=== PATIENT | male | born 1955 | race African-American/Black ===

== ENCOUNTER 2024-09-11 00:07 | Emergency (ER) | payer OTHER ==
[2024-09-11 01:14] LABS: #Basophils 0.01 10x3/uL (0.0-0.2); #Eosinophils 0.11 10x3/uL (0.0-0.5); #Neutrophils 4.48 10x3/uL (1.5-8.4); %Basophils 0.2 % (0.0-2.0); %Eosinophils 1.8 % (0.0-6.0); %Lymphocytes 15.2 % (18.0-47.0); %Monocytes 8.3 % (0.0-10.0); %Neutrophils 74.2 % (40.0-75.0); Hematocrit 33.8 % (38.8-50.0); Mean Corpuscular HGB CONC 32.5 g/dL (32.0-36.0); Mean Platelet Volume 9.1 fL (7.4-10.4); Platelet Count 203 10x3/uL (150-450); Red Blood Cell (RBC) Count 4.07 10x6/uL (4.32-5.72)
[2024-09-11 01:30] LABS: Troponin I 0.014 ng/mL (< 0.028)
[2024-09-11 01:32] LABS: ALT (SGPT) 11 U/L (8-55); AST (SGOT) 19 U/L (5-34); Albumin 3.4 g/dL (3.4-4.8); Alkaline Phosphatase 90 U/L (40-110); Anion Gap 14 mmol/L (10-20); BUN (Urea Nitrogen) 16 mg/dL (8.4-25.7); Bilirubin, Total 0.6 mg/dL (0.2-1.2); Calc. Creatinine Clearance 0 mL/min (70-130); Calcium 8.5 mg/dL (7.8-10.44); Carbon Dioxide 17 mmol/L (23-31); Chloride 109 mmol/L (98-107); Estimated GFR 86; Globulin 3.3 g/dL (2.4-3.5); Glucose 160 mg/dL (80-115); Lipase 41 U/L (8-78); Potassium 3.8 mmol/L (3.5-5.1); Protein, Total 6.7 g/dL (5.8-8.1); Sodium 136 mmol/L (136-145)
[2024-09-11] MEDS ORDERED: Dicyclomine 20 MG TAB ONE (04:28)
[2024-09-11] MEDS ORDERED: Ondansetron PF 4 MG/2 ML Vial ONE (04:30)
[2024-09-11] MEDS ORDERED: Iopamidol 370 76% 100 ML VIAL ONE (12:08)
== END 2024-09-11 04:44 ==
LOC: EEVIPCON 00:07 → CSHERS 00:07
DX: K52.9 Noninfective gastroenteritis and colitis, unspecified (principal); E11.9 Type 2 diabetes mellitus without complications; I10 Essential (primary) hypertension; I25.10 Atherosclerotic heart disease of native coronary artery without angina pectoris; Z79.82 Long term (current) use of aspirin; Z79.84 Long term (current) use of oral hypoglycemic drugs; Z79.02 Long term (current) use of antithrombotics/antiplatelets; Z79.899 Other long term (current) drug therapy
CPT/HCPCS: 36415; 74177; 80053; 83690; 84484; 85025; 93005; 96374; J2405; Q9967